=== PATIENT | male | born 2005 | race Hispanic/Latino ===

== ENCOUNTER 2023-02-11 14:15 | Emergency (ER) | payer OTHER ==
[2023-02-11] MEDS ORDERED: Acetaminophen 500 MG TAB ONE (15:02)
[2023-02-11 15:57] LABS: ALT (SGPT) 16 U/L (8-55); AST (SGOT) 16 U/L (10-45); Albumin 4.2 g/dL (3.5-5.0); Alkaline Phosphatase 82 U/L (50-130); Anion Gap 13 mmol/L (10-20); BUN (Urea Nitrogen) 11 mg/dL (8.4-21.0); Bilirubin, Total 0.9 mg/dL (0.2-1.2); Calc. Creatinine Clearance 0 mL/min (70-130); Calcium 9.3 mg/dL (7.8-10.44); Carbon Dioxide 23 mmol/L (22-29); Chloride 103 mmol/L (98-107); Estimated GFR 103; Globulin 3.3 g/dL (2.4-3.5); Glucose 112 mg/dL (70-105); Potassium 3.7 mmol/L (3.5-5.1); Protein, Total 7.5 g/dL (6.0-8.3); Sodium 135 mmol/L (136-145)
[2023-02-11 16:11] LABS: #Monocytes 1.6 thou/uL (0.11-0.59); #Neutrophils 15.3 thou/uL (1.40-6.50); %Basophils 0.1 % (0.0-1.0); %Eosinophils 0.1 % (0.0-10.0); %Lymphocytes 5.8 % (28.0-48.0); %Monocytes 8.6 % (0.0-4.0); %Neutrophils 85.3 % (31.0-61.0); Hemoglobin 14.8 g/dL (14.0-18.0); Mean Corpuscular HGB CONC 34.9 g/dL (32.0-36.0); Mean Corpuscular Hemoglobin 32.6 pg (25.0-35.0); Mean Corpuscular Volume 93.4 fl (78.0-98.0); Mean Platelet Volume 8.2 fL (7.4-10.4); Platelet Count 169 10x3/uL (130-400); RBC Distribution Width 10.8 % (11.5-14.5); Red Blood Cell (RBC) Count 4.55 mill/uL (4.00-5.20)
[2023-02-11 16:20] LABS: SARS-CoV-2 NAA Rapid Test Not Detected (NotDetected)
[2023-02-11 17:47] LABS: Bilirubin Negative (Negative); Blood, Urine Negative (Negative); Clarity Clear (Clear); Glucose, Urine (Dipstick) Normal (Negative); Ketone, Urine Negative (Negative); Leukocyte Negative Leu/uL (Negative); Nitrite Negative (Negative); Protein, Urine (Dipstick) 20 mg/dL (Neg-Trace); Specific Gravity, Urine 1.028 (1.002-1.036); Urobilinogen Normal mg/dL (Less than 2); pH, Urine 6.5 (5.0-9.0)
[2023-02-11] MEDS ORDERED: Dexamethasone 4 mg/ml Vial ONE (18:19)
== END 2023-02-11 18:15 | disposition home or self-care (01) ==
LOC: ERS 14:15
DX: B34.9 Viral infection, unspecified (principal); R51.9 Headache, unspecified; D72.829 Elevated white blood cell count, unspecified; Z20.822 Contact with and (suspected) exposure to COVID-19
CPT/HCPCS: 36415; 70450; 71045; 76870; 80053; 81003; 83605; 85025; 87081; 87430; 93976; 96360; 96361; J1100

== ENCOUNTER 2023-02-13 11:51 | Emergency (ER) | payer OTHER ==
[2023-02-13 14:16] LABS: #Eosinphils 0.1 thou/uL (0.0-0.7); #Monocytes 1.8 thou/uL (0.11-0.59); #Neutrophils 10.4 thou/uL (1.40-6.50); %Basophils 0.2 % (0.0-1.0); %Eosinophils 0.5 % (0.0-10.0); %Lymphocytes 12.5 % (28.0-48.0); %Monocytes 12.9 % (0.0-4.0); %Neutrophils 73.3 % (31.0-61.0); Hemoglobin 13.7 g/dL (14.0-18.0); Mean Corpuscular HGB CONC 32.4 g/dL (32.0-36.0); Mean Corpuscular Hemoglobin 30.1 pg (25.0-35.0); Mean Platelet Volume 10.2 fL (7.4-10.4); Platelet Count 210 10x3/uL (130-400); RBC Distribution Width 11.9 % (11.5-14.5); Red Blood Cell (RBC) Count 4.55 mill/uL (4.00-5.20); White Blood Cell (WBC) Count 14.2 10x3/uL (4.8-10.8)
[2023-02-13 14:45] LABS: ALT (SGPT) 19 U/L (8-55); AST (SGOT) 13 U/L (10-45); Albumin 3.7 g/dL (3.5-5.0); Alkaline Phosphatase 68 U/L (50-130); Anion Gap 13 mmol/L (10-20); BUN (Urea Nitrogen) 11 mg/dL (8.4-21.0); Bilirubin, Total 0.4 mg/dL (0.2-1.2); Calc. Creatinine Clearance 0 mL/min (70-130); Calcium 8.9 mg/dL (7.8-10.44); Carbon Dioxide 24 mmol/L (22-29); Chloride 108 mmol/L (98-107); Estimated GFR 123; Globulin 3.1 g/dL (2.4-3.5); Glucose 95 mg/dL (70-105); Potassium 4.1 mmol/L (3.5-5.1); Protein, Total 6.8 g/dL (6.0-8.3); Sodium 141 mmol/L (136-145)
== END 2023-02-13 15:47 | disposition home or self-care (01) ==
LOC: ERS 11:51
DX: B34.9 Viral infection, unspecified (principal); D72.829 Elevated white blood cell count, unspecified
CPT/HCPCS: 80053; 85025; 87081; 87430; 93005